=== PATIENT | male | born 1980 | race Hispanic/Latino ===

== ENCOUNTER 2016-06-15 18:11 | Emergency (ER) | payer BC ==
[2016-06-15] MEDS ORDERED: Benzonatate 100 MG CAP ONE (19:39)
[2016-06-15] MEDS ORDERED: AMOXicillin 250 MG CAP ONE (19:39)
== END 2016-06-15 19:40 | disposition home or self-care (01) ==
LOC: MADERS 18:11
DX: J20.9 Acute bronchitis, unspecified (principal); J11.1 Influenza due to unidentified influenza virus with other respiratory manifestations; E11.9 Type 2 diabetes mellitus without complications; F17.210 Nicotine dependence, cigarettes, uncomplicated
CPT/HCPCS: 99283

== ENCOUNTER 2017-06-01 18:14 | Emergency (ER) | payer BC ==
[2017-06-01] MEDS ORDERED: HYDROcodone/Acetaminophen 10/325 mg Tablet ONE (18:52)
[2017-06-01] MEDS ORDERED: Acetaminophen 325 MG TAB ONE (18:52)
--- NOTE | 2017-06-01 19:53 | RAD ---
LEFT THUMB RADIOGRAPHS THREE VIEWS 06/01/17 PROVIDED CLINICAL HISTORY: Left thumb pain status post injury. FINDINGS: There is no evidence for fracture or other acute osseous abnormality. If there is persistent clinical concern, conservative management and followup imaging are advised. IMPRESSION: As above. POS: DO
== END 2017-06-01 19:15 | disposition home or self-care (01) ==
LOC: MADERS 18:14
DX: S69.92XA Unspecified injury of left wrist, hand and finger(s), initial encounter (principal); E11.9 Type 2 diabetes mellitus without complications; F17.210 Nicotine dependence, cigarettes, uncomplicated; Z79.84 Long term (current) use of oral hypoglycemic drugs; Z79.899 Other long term (current) drug therapy; W20.8XXA Other cause of strike by thrown, projected or falling object, initial encounter

== ENCOUNTER 2017-09-20 09:31 | Outpatient (CLI) | payer BC ==
--- NOTE | 2017-09-20 11:08 | RAD ---
RIGHT FOOT THREE VIEWS: History: Injury to foot, pain. FINDINGS: Small enthesophytes from the plantar calcaneus. Tarsals otherwise appear unremarkable. The metatarsal s and phalanges appear intact. MTP joints are unremarkable. IMPRESSION: Small enthesophyte from the plantar calcaneus. No acute abnormality. POS: EMMIE
== END 2017-09-20 09:32 | disposition home or self-care (01) ==
LOC: MADRAD 09:31
PROVIDERS: ATTEND General Practice
DX: M79.671 Pain in right foot (principal); M77.31 Calcaneal spur, right foot

== ENCOUNTER 2018-01-25 06:46 | Emergency (ER) | payer BC | END 2018-01-25 08:45 | disposition home or self-care (01) | LOC: MADERS 06:46 | DX: M79.652 Pain in left thigh (principal); E11.9 Type 2 diabetes mellitus without complications; F17.210 Nicotine dependence, cigarettes, uncomplicated; Z79.84 Long term (current) use of oral hypoglycemic drugs; X50.9XXA Other and unspecified overexertion or strenuous movements or postures, initial encounter | CPT/HCPCS: 99283 ==

== ENCOUNTER 2019-03-24 06:32 | Emergency (ER) | payer BC ==
[2019-03-24] MEDS ORDERED: Sodium Chloride 0.9% 2,000 ML ONE (07:24)
[2019-03-24 07:42] LABS: #Basophils 0.1 thou/uL (0.0-0.2); #Eosinphils 0.1 thou/uL (0.0-0.7); #Lymphocytes 1.1 thou/uL (1.20-3.40); #Monocytes 0.6 thou/uL (0.11-0.59); #Neutrophils 6.6 thou/uL (1.40-6.50); %Basophils 1.7 % (0.0-1.0); %Eosinophils 1.7 % (0.0-10.0); %Lymphocytes 12.7 % (21.0-51.0); %Monocytes 7.1 % (0.0-10.0); %Neutrophils 76.8 % (42.0-75.0); Mean Corpuscular HGB CONC 32.2 g/dL (32.0-36.0); Mean Corpuscular Volume 86.8 fL (78.0-98.0); Mean Platelet Volume 6.9 fL (7.4-10.4); Platelet Count 268 thou/uL (130-400); RBC Distribution Width 11.4 % (11.5-14.5); Red Blood Cell (RBC) Count 5.73 mill/uL (4.70-6.10); White Blood Cell (WBC) Count 8.6 thou/uL (4.8-10.8)
[2019-03-24 07:48] LABS: Bilirubin Negative (Negative); Blood, Urine Negative (Negative); Clarity Clear (Clear); Glucose, Urine (Dipstick) 100 mg/dL (Negative); Leukocyte Negative (Negative); Nitrite Negative (Negative); Protein, Urine (Dipstick) Negative (Neg-Trace)
[2019-03-24 07:54] LABS: Base Excess-Venous 4.5 mmol/L (-2.0 to 3.0); Bicarbonate (HCO3v) 28.2 mmol/L (22.0-28.0); CO2 Tension (PvCO2) 38.2 mmHg (40.0-50.0); Calcium, Ionized 1.14 mmol/L (See Comments:); Chloride 105 mmol/L (98-107); Hemoglobin - Calc 18.3 g/dL (14.0-18.0); Potassium 4.4 mmol/L (3.5-5.1); Sodium 139 mmol/L (138-145); T. Carbon Dioxide 29.4 mmol/L (22.0-28.0); vO2 Saturation-calc 99.5 % (60.0-85.0)
[2019-03-24 07:57] LABS: ALT (SGPT) 37 U/L (8-55); AST (SGOT) 22 U/L (5-34); Albumin 4.2 g/dL (3.5-5.0); Alkaline Phosphatase 82 U/L (40-110); Anion Gap 13 mmol/L (10-20); BUN (Urea Nitrogen) 11 mg/dL (8.9-20.6); Bilirubin, Total 0.8 mg/dL (0.2-1.2); Calc. Creatinine Clearance 0 mL/min (70-130); Calcium 9.4 mg/dL (7.8-10.44); Carbon Dioxide 25 mmol/L (22-29); Chloride 103 mmol/L (98-107); Estimated GFR-MDRD 69; Globulin 3.6 g/dL (2.4-3.5); Glucose 243 mg/dL (70-105); Protein, Total 7.8 g/dL (6.0-8.3); Sodium 137 mmol/L (136-145)
== END 2019-03-24 08:18 | disposition home or self-care (01) ==
LOC: MADERS 06:32
DX: E11.65 Type 2 diabetes mellitus with hyperglycemia (principal); R45.86 Emotional lability; F17.210 Nicotine dependence, cigarettes, uncomplicated; Z79.84 Long term (current) use of oral hypoglycemic drugs
CPT/HCPCS: 36416; 80053; 81003; 82330; 82803; 83605; 85025; 96360; J7050

== ENCOUNTER 2020-06-01 21:48 | Emergency (ER) | payer SELFPAY ==
[~2020-06-01 21:48] MED LIST: Iopamidol 370 76% 100 ML VIAL ONE
[2020-06-01 22:26] LABS: Bilirubin Negative (Negative); Blood, Urine Negative (Negative); Clarity Clear (Clear); Glucose, Urine (Dipstick) 500 mg/dL (Negative); Ketone, Urine Negative (Negative); Leukocyte Negative (Negative); Nitrite Negative (Negative); Protein, Urine (Dipstick) Negative (Neg-Trace); Specific Gravity, Urine 1.025 (1.005-1.030)
[2020-06-01] MEDS ORDERED: Ketorolac Tromethamine 30 MG/ML VIAL ONE (22:31)
[2020-06-01] MEDS ORDERED: Sodium Chloride 0.9% 1,000 ML ONE (22:31)
[2020-06-01 22:32] LABS: #Basophils 0.2 thou/uL (0.0-0.2); #Eosinphils 0.3 thou/uL (0.0-0.7); #Lymphocytes 2.6 thou/uL (1.20-3.40); #Monocytes 0.6 thou/uL (0.11-0.59); #Neutrophils 7.1 thou/uL (1.40-6.50); %Basophils 1.6 % (0.0-1.0); %Eosinophils 2.8 % (0.0-10.0); %Lymphocytes 23.9 % (21.0-51.0); %Monocytes 5.3 % (0.0-10.0); %Neutrophils 66.3 % (42.0-75.0); Hemoglobin 15.9 g/dL (14.0-18.0); Mean Corpuscular HGB CONC 33.3 g/dL (32.0-36.0); Mean Corpuscular Hemoglobin 27.8 pg (27.0-31.0); Mean Corpuscular Volume 83.6 fL (78.0-98.0); Mean Platelet Volume 6.9 fL (7.4-10.4); Platelet Count 254 thou/uL (130-400); RBC Distribution Width 11.3 % (11.5-14.5); Red Blood Cell (RBC) Count 5.71 mill/uL (4.70-6.10); White Blood Cell (WBC) Count 10.7 thou/uL (4.8-10.8)
[2020-06-01 22:53] LABS: ALT (SGPT) 24 U/L (8-55); AST (SGOT) 12 U/L (5-34); Albumin 4.1 g/dL (3.5-5.0); Alkaline Phosphatase 78 U/L (40-110); Anion Gap 12 mmol/L (10-20); BUN (Urea Nitrogen) 18 mg/dL (8.9-20.6); Bilirubin, Total 0.5 mg/dL (0.2-1.2); Calc. Creatinine Clearance 0 mL/min (70-130); Calcium 8.8 mg/dL (7.8-10.44); Carbon Dioxide 27 mmol/L (22-29); Chloride 101 mmol/L (98-107); Globulin 3.6 g/dL (2.4-3.5); Glucose 198 mg/dL (70-105); Lipase 13 U/L (8-78); Potassium 3.9 mmol/L (3.5-5.1); Protein, Total 7.7 g/dL (6.0-8.3); Sodium 136 mmol/L (136-145)
[2020-06-01] MEDS ORDERED: Piperacillin/Tazobactam 3.375 GM VIAL ONE (23:05)
[2020-06-01] MEDS ORDERED: Sodium Chloride 0.9% 100 ML ONE (23:06)
[2020-06-02 00:07] LABS: SARS-CoV-2 NAA Rapid Test Not Detected (NotDetected)
--- NOTE | 2020-06-02 07:35 | CT ---
CT ABDOMEN AND PELVIS WITH IV CONTRAST: Date: 06/01/2020 INDICATION: Right-sided abdominal pain. Comparison made to CT abdomen and pelvis from 05/31/2013. FINDINGS: Lung bases clear. Liver, spleen, and pancreas unremarkable. Stomach and duodenum unremarkable. Gallbladder is contracte d. Adrenal glands normal. Kidneys unremarkable. Small bowel loops are normal caliber. The appendix is dilated and inflamed, measuring up to 15.0 mm diameter. No evidence of fluid or absce ss collection. No significant free fluid. Images through the pelvis are unremarkable. Aorta and retroperitoneum unremarkable with nonspecific lymph nodes. IMPRESSION: Dilated, inflamed appendix consistent with appendicitis. Findings relayed to ER physician at time of dictation. CODE CR. POS: VANDA
== END 2020-06-02 00:01 | disposition short-term general hospital (02) ==
LOC: MADERS 21:48
DX: K35.80 Unspecified acute appendicitis (principal); Z20.822 Contact with and (suspected) exposure to COVID-19; E11.9 Type 2 diabetes mellitus without complications; Z79.84 Long term (current) use of oral hypoglycemic drugs; Z79.899 Other long term (current) drug therapy
CPT/HCPCS: 0240U; 74177; 80053; 81003; 83690; 85025; 96365; 96375; J1885; J2543; J3490; J7050; Q9967

== ENCOUNTER 2021-03-11 12:34 | Emergency (ER) | payer OTHER ==
[2021-03-11] MEDS ORDERED: Fluorescein Opthalmic Strip ONE (12:49)
[2021-03-11] MEDS ORDERED: Tetracaine 0.5% PF 4 ML BOT ONE (12:49)
[2021-03-11] MEDS ORDERED: Sodium Chloride 0.9% 1,000 ML ONE (13:54)
== END 2021-03-11 13:48 | disposition home or self-care (01) ==
LOC: MADERS 12:34
DX: H11.421 Conjunctival edema, right eye (principal); E11.9 Type 2 diabetes mellitus without complications
CPT/HCPCS: 99283; J7050